=== PATIENT | male | born 1960 | race Caucasian/White ===

== ENCOUNTER 2016-07-05 11:59 | Emergency (ER) | payer OTHER, MEDICAID ==
[~2016-07-05] VITALS: Ht 185.4 cm; Wt 75.0 kg
[2016-07-05 12:25] VITALS: Ht 185.4 cm; Wt 75.0 kg
[2016-07-05] MEDS ORDERED: SULF1TAB31 PO (13:43)
[2016-07-05] MEDS ORDERED: CEPH500C PO (13:43)
--- NOTE | 2016-07-05 13:50 | ERD ---
ER Documentation Chief Complaint Date/Time DATE: 07/05/16 TIME: 13:45 Chief Complaint Scrotal tightness. HPI This 55-year-old male presented emergency room for having scrotal tightness. He states that he has hidradenitis and has had this problem for 13 years. States it is believing that he needs to have it drained. He denies fevers and chills. States that sometimes it hurts but it does not hurt now. Denies any trouble urinating. Denies any penile or testicular pain ROS All systems reviewed and are negative except as per history of present illness. Medications Home Meds Active Scripts Cephalexin* (Cephalexin*) 500 Mg Capsule, 500 MG PO Q8, #30 CAP Prov:BASILSURYABOZENA DO 07/05/16 Sulfamethoxazole/Trimethoprim* (Bactrim Ds* Tablet) 1 Each Tablet, 1 TAB PO BID , #20 TAB Prov:BOZENA GRACIA DO 07/05/16 Allergies Allergies: Coded Allergies: No Known Allergy (Unverified , 07/05/16) Physical Exam Physical Exam Const: [] No distress Head: Atraumatic Eyes: Normal Conjunctiva ENT: Normal External Ears, Nose and Mouth. Abd: Soft, non tender, non distended. Normal bowel sounds. Scrotum with erythema as well as mildly indurated field to the entire scrotum. There is no calor or tenderness. No testicular pain to palpation. No penile pain. Skin: No petechiae or rashes Back: No midline or flank tenderness Ext: No cyanosis, or edema Neur: Awake and alert and oriented 3, no focal deficits Psych: Normal Mood and Affect Procedures/MDM 55-year-old male with scrotal swelling secondary to hidradenitis. Dr. Peterson, urologist, came and saw the patient in the emergency room. He drained the abscesses and did a wound culture. I put in the wound culture at his request. Also discharging with Bactrim and Keflex to prevent any serious infection. Currently has no obvious cellulitis but did have foul-smelling drainage from his abscesses. Patient was able to have the abscesses drained without any significant pain and currently denies that he has significant pain although he does on occasion. Does have bilateral inguinal testicles and diminished but preserved blood flow to the right testicle without any current discomfort. Discharging him with Dr. Peterson's information for follow-up the next few days. I have also provided the patient with a copy of his ultrasound report encircled for him the areas of concern and told him to come back to emergency room immediately for any testicular pain.. Scrotal ultrasound interpretation: Bilateral preserve blood flow of testicles with diminished blood flow to right testicle. Bilateral inguinal testicles. Departure Diagnosis: Primary Impression: Scrotal abscess Additional Impressions: Hydradenitis Bilateral inguinal testicle Condition: Stable Patient Instructions: Abscess Drainage Referrals: MIRTHA PETERSON MD Additional Instructions: Call your primary care doctor TOMORROW for an appointment during the next 2-3 days.See the doctor sooner or return here if your condition worsens before your appointment time. BOZENA GRACIA DO July 05, 2016 13:50
--- NOTE | 2016-07-05 14:11 | RADRPT ---
PROCEDURE: Scrotal ultrasound CLINICAL INDICATION: Scrotal pain and swelling. TECHNIQUE: Scrotal ultrasound was performed with sagittal and transverse views. Diallo scale and co nathan imaging was performed. Images were reviewed on high resolution PACS monitors. COMPARISON: None available FINDINGS: The right testicle measures 4.4 x 1.7 x 2.0 cm. There is normal size, echogenicity, and morphology o f the right testicle. The right epididymis is normal in appearance. The left testicle measures 4.2 x 0.7 x 2.0 cm. There is normal size, echogenicity, and morphology of the left testicle. The left epididymis is normal in appearance.. There is no hydrocele or varicocele. The right testicle appearance to reside within the right inguin al canal and the left testicle appears to reside within the left inguinal canal. There is diminished flow within the right testicle. There is diffuse scrotal wall thickening. IMPRESSION: 1. Diminished, but preserved flow within the right testicle. Normal flow within the left testicle. 2. Diffuse scrotal wall thickening, which is nonspecific. 3. Abnormal location of the testicles, with the right testicle appearing to reside within the right inguinal canal and the left testicle within the left inguinal canal. The patient reports that the t esticles previously were within the scrotal sac. RPTAT: GG .Thompson Stallworth MD, MD Date Time Electronically viewed and signed by .Thompson Stallworth MD, MD on 07/05/2016 14:10 .P/
--- NOTE | 2016-07-05 16:43 | CONS ---
DATE OF ADMISSION: 07/05/2016 DATE OF CONSULTATION: 07/05/2016 HISTORY OF PRESENT ILLNESS: This patient is a 55-year-old male who was recently discharged from [facility] to a long term facility and while at the long term facility, he was seen by the physician, Dr. Ramez French, phone number [phone]. Then I was called coco French who asked me my opinion on this patient as the patient does have an infection in hi s scrotum and he is draining pus from that. Therefore what would be my recommendation. Since I hav e not seen this patient before I do not know his history and I have not examined him before and sin e he has pus draining out of his scrotum, I recommended that he be sent to the emergency room and at [facility] since I am going to there around noontime. Then I could see him there and evaluate him. So the patient was sent to the emergency room and I did see him over there and b asically the patient was able to give a history himself as well. He does have a history of hidraden itis for over 15 years and has been treated multiple times and it drains on and off and the patient thought it was much worse before than it is right now. He denies any fever or chills and he has no problem urinating. ALLERGIES: THE PATIENT HAS NO KNOWN DRUG ALLERGIES. SOCIAL HISTORY: He does not smoke and does not drink any alcohol. He used to in the past. PHYSICAL EXAMINATION: GENERAL: Reveals an elderly male. VITAL SIGNS: Temperature is 98.1, pulse is 82, respiration 18, blood pressure 136/83. He weighs 75 kilograms. He is 73 inches tall. HEAD AND NECK: Unremarkable. There is no adenopathy and the neck is supple. The ears, nose and mo uth are all normal. The chest is clear. ABDOMEN: Soft. There is no abdominal mass palpable and there are no scars on his abdomen. GENITALIA: External genitalia show that he does have purulent different discharge problem on the ri ght side near the base of the penis. Also, he does have drainage from the perineal side of the scro gloria. I did squeeze the pus out of these 2 areas and did collect a culture from this pus and sent it to the lab. The penis otherwise is normal. Most of the hidradenitis it is in the scrotum. EXTREMITIES: Normal. The patient was anxious to eat. IMPRESSION: Scrotal hidradenitis. PLAN: We did send a culture and I did discuss it with the emergency room doctor. The patient will be placed on Keflex as well as on the Bactrim that he is on and he will follow up with the physician taking care of him in the half-way. Dictated By: MIRTHA MILES/DAIN Conf#: [id number] DID#: [id number]
== END 2016-07-05 15:50 | disposition home or self-care (01) ==
LOC: E/R 11:59
DX: N49.2 Inflammatory disorders of scrotum (principal); L73.2 Hidradenitis suppurativa; Q53.21 Abdominal testis, bilateral
CPT/HCPCS: 76870; 87070